=== PATIENT | male | born 1960 | race Two or more races ===

== ENCOUNTER 2021-03-26 19:48 | Emergency (ER) | payer OTHER ==
[~2021-03-26] VITALS: Ht 190.5 cm; Wt 98.9 kg
[2021-03-26] MEDS ORDERED: METFORMIN HCL1000 MG (19:51)
== END 2021-03-26 21:11 | disposition home or self-care (01) ==
LOC: ER 19:48
DX: M25.511 Pain in right shoulder (principal)

== ENCOUNTER 2023-05-19 08:29 | Emergency (ER) | payer OTHER ==
[~2023-05-19] VITALS: Ht 190.5 cm; Wt 97.5 kg
[~2023-05-19 08:29] MED LIST: METFORMIN HCL1000 MG
[2023-05-19] MEDS ORDERED: JANUMET 50-1,01 EACH PO (08:59)
[2023-05-19 09:45] LABS: HEMATOCRIT 30.6 % (39.0-48.0); HEMOGLOBIN 10.2 g/dL (13-16.00); MEAN CORPUSCULAR HEMOGLOBIN 27.6 pg (27.00-32.0); MEAN CORPUSCULAR HGB CONC 33.3 g/dl (32.0-36.0); PLATELET COUNT 242 K/uL (150-450); RED BLOOD COUNT 3.68 M/uL (4.00-6.00); RED CELL DISTRIBUTION WIDTH 13.7 % (11.5-14.5)
[2023-05-19 10:17] LABS: ALBUMIN 3.3 gm/dL (3.4-5.0); ALKALINE PHOSPHATASE 47 U/L (50-136); ALT/SGPT 26 U/L (12-78); ANION GAP 6 (10.0-20.0); AST/SGOT 15 U/L (15-37); BILIRUBIN TOTAL 0.27 mg/dL (0.3-1.2); BILIRUBIN,CONJUGATED < 0.10 mg/dL (0.0-0.2); BILIRUBIN,UNCONJUGATED 0.17 mg/dL (0.0-0.6); BLOOD UREA NITROGEN 14 mg/dL (7-18); BUN CREA RATIO 20 (7.0-25.0); CALCIUM 9.1 mg/dL (8.5-10.1); CARBON DIOXIDE 29 mEq/L (21-32); CHLORIDE 106 mmol/L (98-107); GFR 114.27; OSMOLALITY SERUM 284 MOSM/KG (275-295); POTASSIUM 4.63 mEq/L (3.5-5.1); SODIUM 136 mmol/L (136-145); TOTAL PROTEIN 6.9 gm/dL (6.4-8.2)
[2023-05-19 10:24] LABS: PH,URINE 5.5 (5.0-8.0); URINE APPEARANCE Clear; URINE BILIRRUBIN Negative (NEGATIVE); URINE BLOOD Negative; URINE COLOR Yellow; URINE LEUKOCYTE Negative; URINE NITRATE Negative; URINE PROTEIN Negative (NEGATIVE); URINE UROBILINOGEN 0.2 E.U./dl
[2023-05-19 10:25] LABS: GLUCOSE FASTING 304 mg/dL (65-100)
[2023-05-19 10:26] LABS: URINE RBC 3.5 uL (0.0-20.8); URINE WBC 4.4 uL (0.0-23.2)
[2023-05-19 10:30] LABS: URINE GLUCOSE >=1000 MG/DL (NEGATIVE)
== END 2023-05-19 12:30 | disposition home or self-care (01) ==
LOC: ER 08:29
PROVIDERS: General Practice
DX: R19.00 Intra-abdominal and pelvic swelling, mass and lump, unspecified site (principal); K92.1 Melena; Z88.6 Allergy status to analgesic agent; D64.9 Anemia, unspecified; E11.65 Type 2 diabetes mellitus with hyperglycemia; Z79.84 Long term (current) use of oral hypoglycemic drugs; I10 Essential (primary) hypertension

== ENCOUNTER 2023-09-24 10:10 | Inpatient (IN) | payer OTHER ==
[~2023-09-24] VITALS: Ht 190.5 cm; Wt 96.2 kg
[~2023-09-24 10:10] MED LIST changes: +JANUMET 50-1,01 EACH PO
[2023-09-24] MEDS ORDERED: GLIMEPIRIDE2 M1 PO (10:21)
[2023-09-24] MEDS ORDERED: TANDEM DUAL AC106 MG PO (10:22)
[2023-09-24] MEDS ORDERED: CRESTOR5 MG PO (10:22)
--- NOTE | 2023-09-24 10:25 | NUR ---
PTE ALERTA Y ORIENTADO X3 QUIEN REFIERE VENIR YA QUE EN EL MARCELA DE ALEX SE REALIZO LABS Y SALIR HEMOGLOBINA EN 7. PTE VERBALIZA LO VAN A OPERAR EL 8 DE SUKUMAR DE MASA EN EL MESENTERO. POR MD BAILEY
[2023-09-24] MEDS ORDERED: 0.9 % SODIUM CHLORIDE 1,000 ML IV SCH ×2 (10:45→14:15)
[2023-09-24 11:35] LABS: MEAN CORPUSCULAR HGB CONC 30.1 g/dl (32.0-36.0); PLATELET COUNT 569 K/uL (150-450); RED BLOOD COUNT 4.07 M/uL (4.00-6.00)
[2023-09-24 11:38] LABS: HEMATOCRIT 22.9 % (39.0-48.0); MEAN CELL VOLUME 56.4 fL (80.0-100.00); MEAN CORPUSCULAR HEMOGLOBIN 16.9 pg (27.00-32.0); RED CELL DISTRIBUTION WIDTH 21.9 % (11.5-14.5)
[2023-09-24 11:39] LABS: HEMOGLOBIN 6.9 g/dL (13-16.00)
--- NOTE | 2023-09-24 11:46 | NUR ---
SE RECIBE PTE ALERTA ORIENTADO X3.SE CHRISTY MUESTRAS DE LABORATORIO USANDO MEDIDAS ASEPTICAS.SE ADMINISTRAN MEDICAMENTOS PATRICK ORDEN MEDICA.SE ORIENTA PTE SOBRE OBJETIVO DE [place] MEDICO.PTE MANEJADO POR RN ELVA.
[2023-09-24 11:50] LABS: CALCIUM 8.8 mg/dL (8.5-10.1); CREATININE SERUM 0.66 mg/dL (0.70-1.30); GFR 122.3; INR 0.99; PARTIAL THROMBOPLASTIN TIME 24.1 SECONDS (22.0-34.0); POTASSIUM 3.86 mEq/L (3.5-5.1); PROTHROMBIN TIME 10.4 SECONDS (9.0-11.5)
[2023-09-24] MEDS ORDERED: DEXTROSE 50 % IN WATER 0.5 G/ML DISP.SYRIN IV PRN (14:15)
[2023-09-24] MEDS ORDERED: INSULIN LISPRO 1,000 UNIT/10 ML UNITS SUBCUTANEO PRN (14:15)
[2023-09-24] MEDS ORDERED: Cyanocobalamin/Mecobalamin 1 TAB.SL SL SCH (14:16)
[2023-09-24 14:20] LABS: URINE APPEARANCE Clear; URINE BILIRRUBIN Negative (NEGATIVE); URINE BLOOD Negative; URINE COLOR Yellow; URINE GLUCOSE Negative (NEGATIVE); URINE LEUKOCYTE Negative; URINE NITRATE Negative; URINE PROTEIN Negative (NEGATIVE); URINE UROBILINOGEN 0.2 E.U./dl
[2023-09-24 14:24] LABS: URINE EPITHELIAL CELLS 2.1 uL (0.0-38.8); URINE RBC 16.9 uL (0.0-20.8); URINE WBC 2.3 uL (0.0-23.2)
[2023-09-24] MEDS ORDERED: FUROsemide 20 MG/2 ML VIAL IV SCH (14:30)
[2023-09-24] MEDS ORDERED: CRESTOR 10 MG PO SCH (17:00)
[2023-09-24] MEDS ORDERED: SOD FERRIC GLUC COMPLX/SUCROSE 62.5 MG in 0.9 % SODIUM CHLORIDE 50 ML IV SCH (17:00)
[2023-09-26 05:13] LABS: HEMATOCRIT 32.9 % (39.0-48.0); HEMOGLOBIN 10.5 g/dL (13-16.00); MEAN CORPUSCULAR HEMOGLOBIN 19.6 pg (27.00-32.0); MEAN CORPUSCULAR HGB CONC 31.8 g/dl (32.0-36.0); PLATELET COUNT 449 K/uL (150-450); RED BLOOD COUNT 5.34 M/uL (4.00-6.00)
[2023-09-26 05:14] LABS: MEAN CELL VOLUME 61.6 fL (80.0-100.00); RED CELL DISTRIBUTION WIDTH 28.6 % (11.5-14.5)
[2023-09-26] MEDS ORDERED: GLIMEPIRIDE2 M1 PO (10:54)
[2023-09-26] MEDS ORDERED: ABANEU-SL TABL1 EACH SL (10:54)
[2023-09-26] MEDS ORDERED: CRESTOR5 MG PO (10:54)
[2023-09-26] MEDS ORDERED: JANUMET 50-1,01 EACH PO (10:54)
[2023-09-26] MEDS ORDERED: FOLIC ACID1 MG PO (10:54)
[2023-09-26] MEDS ORDERED: FUSION PLUS CA1 EACH PO (10:54)
[2023-09-26 13:09] LABS: hgb a 98.3 % (96.4-98.8); hgb a2 1.7 % (1.8-3.2); hgb f 0 % (0.0-2.0); hgb s 0 % (0.0)
== END 2023-09-26 14:58 | disposition home or self-care (01) | DRG 812 ==
LOC: ER 10:12 → SURH 15:17 → SEC-K 15:17 → SURH 23:06
PROVIDERS: Emergency Medicine; ADMIT Internal Medicine Geriatric Medicine; ATTEND Internal Medicine Geriatric Medicine
PROC: BW21YZZ Computerized Tomography (CT Scan) of Abdomen and Pelvis using Other Contrast (ICD-10-PCS; 2023-09-24)
PROC: 30233N1 Transfusion of Nonautologous Red Blood Cells into Peripheral Vein, Percutaneous Approach (ICD-10-PCS; principal; 2023-09-25)
DX: D64.89 Other specified anemias (principal); D49.0 Neoplasm of unspecified behavior of digestive system; E78.5 Hyperlipidemia, unspecified; E11.9 Type 2 diabetes mellitus without complications; Z79.84 Long term (current) use of oral hypoglycemic drugs

== ENCOUNTER 2023-10-15 10:34 | Inpatient (IN) | payer OTHER ==
[~2023-10-15] VITALS: Ht 190.5 cm; Wt 96.2 kg
[~2023-10-15 10:34] MED LIST changes: +ABANEU-SL TABL1 EACH SL; +CRESTOR5 MG PO; +FOLIC ACID1 MG PO; +FUSION PLUS CA1 EACH PO; +GLIMEPIRIDE2 M1 PO; +TANDEM DUAL AC106 MG PO
[2023-10-22] MEDS ORDERED: BUPIVACAINE HCL 30 ML VIAL IV ONE (08:30)
[2023-10-22] MEDS ORDERED: LIDOCAINE HCL 1%/EPINEPHRINE 20ML VIAL IJ ONE (08:30)
[2023-10-22] MEDS ORDERED: FAMOTIDINE/PF 20 MG/2 ML VIAL IV PUSH SCH (09:00)
[2023-10-22] MEDS ORDERED: ONDANSETRON HCL 2 MG/ML VIAL IV PRN (09:00)
[2023-10-22] MEDS ORDERED: METRONIDAZOLE/SODIUM CHLORIDE 500 MG/100 ML PIGGYBACK IV SCH (09:00)
[2023-10-22] MEDS ORDERED: DEXTROSE 50 % IN WATER 0.5 G/ML DISP.SYRIN IV PRN (09:00)
[2023-10-22] MEDS ORDERED: 0.9 % SODIUM CHLORIDE 1,000 ML IV SCH (09:00)
[2023-10-22] MEDS ORDERED: GABAPENTIN 300 MG CAPSULE PO SCH (09:00)
[2023-10-22] MEDS ORDERED: MORPHINE SULFATE 4 MG/ML CARTRIDGE IV PRN (09:00)
[2023-10-22] MEDS ORDERED: OxyCODONE HCL 5 MG TABLET (ROXICODONE) PO PRN (09:00)
[2023-10-22] MEDS ORDERED: HYOSCYAMINE SULFATE 0.125 MG TAB.SUBL SL SCH (09:00)
[2023-10-22 11:53] LABS: HEMATOCRIT 35.9 % (39.0-48.0); MEAN CORPUSCULAR HGB CONC 30.9 g/dl (32.0-36.0); PLATELET COUNT 287 K/uL (150-450); RED BLOOD COUNT 5.25 M/uL (4.00-6.00)
[2023-10-22 12:25] LABS: CALCIUM 8.6 mg/dL (8.5-10.1); CREATININE SERUM 0.63 mg/dL (0.70-1.30); GFR 129.04; MAGNESIUM 1.9 mg/dL (1.8-2.4); PHOSPHOROUS 4.2 mg/dL (2.5-4.9); POTASSIUM 4.14 mEq/L (3.5-5.1)
[2023-10-22 12:30] LABS: HEMOGLOBIN 11.1 g/dL (13-16.00); MEAN CELL VOLUME 68.5 fL (80.0-100.00); MEAN CORPUSCULAR HEMOGLOBIN 21.1 pg (27.00-32.0)
[2023-10-22] MEDS ORDERED: ACETAMINOPHEN 500 MG GEL..CAP PO SCH (14:00)
[2023-10-23] MEDS ORDERED: INSULIN LISPRO 1,000 UNIT/10 ML UNITS SUBCUTANEO PRN (02:30)
[2023-10-23] MEDS ORDERED: DEXTROSE 50 % IN WATER 0.5 G/ML DISP.SYRIN IV PRN (02:30)
[2023-10-23] MEDS ORDERED: ENALAPRILAT DIHYDRATE 1.25 MG/ML VIAL IV PRN (02:30)
[2023-10-23 07:19] LABS: MEAN CELL VOLUME 89.7 fL (80.0-100.00); MEAN CORPUSCULAR HGB CONC 34.5 g/dl (32.0-36.0); PLATELET COUNT 581 K/uL (150-450); RED BLOOD COUNT 2.51 M/uL (4.00-6.00)
[2023-10-23 07:24] LABS: HEMATOCRIT 22.5 % (39.0-48.0)
[2023-10-23 07:29] LABS: HEMOGLOBIN 7.8 g/dL (13-16.00); RED CELL DISTRIBUTION WIDTH 16.2 % (11.5-14.5)
[2023-10-23 09:32] LABS: ABG PH 7.424 (7.35-7.45); ABG PO2 80.6 mmHg (80-100); ABG pCO2 36.7 mmHg (35-45); BASE EXCESS -0.5 mmol/l; BICARBONATE 23.5 mmol/l (23-25); SaO2 96.1 %; Tco2 24.6 mmol/l
[2023-10-23 09:33] LABS: ALBUMIN 3.1 gm/dL (3.4-5.0); CALCIUM 8.8 mg/dL (8.5-10.1); CREATININE SERUM 0.6 mg/dL (0.70-1.30); GFR 136.52; MAGNESIUM 2.2 mg/dL (1.8-2.4); PHOSPHOROUS 3.5 mg/dL (2.5-4.9); POTASSIUM 4.06 mEq/L (3.5-5.1)
[2023-10-23 09:45] LABS: HEMATOCRIT 37.1 % (39.0-48.0); HEMOGLOBIN 11.7 g/dL (13-16.00); MEAN CORPUSCULAR HEMOGLOBIN 21.4 pg (27.00-32.0); MEAN CORPUSCULAR HGB CONC 31.4 g/dl (32.0-36.0); RED BLOOD COUNT 5.44 M/uL (4.00-6.00)
[2023-10-23 09:46] LABS: MEAN CELL VOLUME 68.2 fL (80.0-100.00)
[2023-10-23 09:47] LABS: PLATELET COUNT 207 K/uL (150-450)
[2023-10-23 09:49] LABS: allen test SATISFACTORY; o2 21 %; puncture site RADIAL RIGHT
[2023-10-23] MEDS ORDERED: METRONIDAZOLE/SODIUM CHLORIDE 500 MG/100 ML PIGGYBACK IV ONE (14:15)
[2023-10-23] MEDS ORDERED: CEFTRIAXONE SODIUM 2,000 MG VIAL IV ONE (14:15)
[2023-10-23] MEDS ORDERED: PATIENTS OWN MEDICATION (MEDICAMENTO EN PISO) PO SCH (17:00)
[2023-10-23] MEDS ORDERED: ENOXAPARIN SODIUM 40 MG/0.4 ML SYRINGE SUBCUTANEO SCH ×2 (17:00)
[2023-10-24 08:29] LABS: CALCIUM 8.9 mg/dL (8.5-10.1); CREATININE SERUM 0.6 mg/dL (0.70-1.30); GFR 136.52; MAGNESIUM 2.1 mg/dL (1.8-2.4); PHOSPHOROUS 3.5 mg/dL (2.5-4.9); POTASSIUM 4.07 mEq/L (3.5-5.1)
[2023-10-24] MEDS ORDERED: ENOXAPARIN SODIUM 40 MG/0.4 ML SYRINGE SUBCUTANEO SCH (09:00)
[2023-10-24 11:15] LABS: HEMATOCRIT 34.5 % (39.0-48.0); HEMOGLOBIN 10.8 g/dL (13-16.00); MEAN CORPUSCULAR HEMOGLOBIN 21.6 pg (27.00-32.0); MEAN CORPUSCULAR HGB CONC 31.2 g/dl (32.0-36.0); PLATELET COUNT 223 K/uL (150-450)
[2023-10-24 11:38] LABS: MEAN CELL VOLUME 69.2 fL (80.0-100.00); RED CELL DISTRIBUTION WIDTH 33.7 % (11.5-14.5)
[2023-10-25] MEDS ORDERED: PEPCID AC20 MG PO (11:13)
[2023-10-25] MEDS ORDERED: TRAM1TAB98 PO (11:13)
[2023-10-25] MEDS ORDERED: HYOSCYAMINE0.125 M1 SL (11:13)
[2023-10-25] MEDS ORDERED: LACRI-LUBE S.O3.5 GM OP (11:14)
== END 2023-10-25 13:38 | disposition home or self-care (01) | DRG 331 ==
LOC: O/R 10-22 05:00 → SURG 10-22 10:06 → SURH 10-22 12:00 → SURG 10-25 13:38
PROVIDERS: Internal Medicine Geriatric Medicine; ADMIT Surgery; ATTEND Surgery
PROC: 0DBV4ZZ Excision of Mesentery, Percutaneous Endoscopic Approach (ICD-10-PCS; 2023-10-22)
PROC: 0DB84ZZ Excision of Small Intestine, Percutaneous Endoscopic Approach (ICD-10-PCS; principal; 2023-10-22 19:00)
PROC: 4A12X4Z Monitoring of Cardiac Electrical Activity, External Approach (ICD-10-PCS; 2023-10-23)
DX: C49.A3 Gastrointestinal stromal tumor of small intestine (principal); D21.4 Benign neoplasm of connective and other soft tissue of abdomen; E11.9 Type 2 diabetes mellitus without complications; E78.5 Hyperlipidemia, unspecified; G47.30 Sleep apnea, unspecified; D64.89 Other specified anemias; Z79.84 Long term (current) use of oral hypoglycemic drugs

== ENCOUNTER 2024-04-15 03:56 | Emergency (ER) | payer OTHER ==
[~2024-04-15] VITALS: Ht 190.5 cm; Wt 97.1 kg
[~2024-04-15 03:56] MED LIST changes: +HYOSCYAMINE0.125 M1 SL; +LACRI-LUBE S.O3.5 GM OP; +PEPCID AC20 MG PO; +TRAM1TAB98 PO
[2024-04-15] MEDS ORDERED: DEXAMETHASONE SODIUM PHOSPHATE 4 MG/ML VIAL IM STA (05:36)
[2024-04-15] MEDS ORDERED: ACETAMINOPHEN WITH CODEINE 1 UDTAB TABLET PO STA (05:36)
[2024-04-15] MEDS ORDERED: ACETAMINOPHEN 500 MG GEL..CAP PO STA (05:37)
[2024-04-15] MEDS ORDERED: ACETAMINOPHEN 500 MG GEL..CAP PO ONE (05:48)
[2024-04-15] MEDS ORDERED: DEXAMETHASONE SODIUM PHOSPHATE 4 MG/ML VIAL ONE (05:49)
== END 2024-04-15 06:00 | disposition home or self-care (01) ==
LOC: ER 03:58
DX: M77.8 Other enthesopathies, not elsewhere classified (principal); Z88.6 Allergy status to analgesic agent